=== PATIENT | male | born 1995 | race Caucasian/White ===

== ENCOUNTER → 2020-03-13 14:12 | Outpatient (BNVA) | payer BC, SELFPAY | PROVIDERS: Visit Provider Nurse Practitioner Family | DX: Z11.59 Encounter for screening for other viral diseases (principal); R05 Cough; R09.81 Nasal congestion | CPT/HCPCS: 87635 ==

== ENCOUNTER 2020-05-13 10:46 | Emergency (ER) | payer OTHER, SELFPAY ==
[2020-05-13 11:10] VITALS: BP 159/90; PULSE 98; RESP 14; TEMP 36.4; O2SAT 97; BMI 28.1
--- NOTE | 2020-05-13 11:17 | XR_ITS ---
WS: [id number] XR ankle RT min 3V* 11529 REASON FOR EXAM: Jumped off pallet and twisted ankle with swelling noted FINDINGS: Soft tissue swelling about the ankle most notably over the lateral malleolus. Normal anatomic alignment. The ankle mortise is intact. No fracture is identified. There is a very small accessory ossicle adjacent to the tip of the medial malleolus. XR/XR ankle RT min 3V* 50439 IMPRESSION: Soft tissue swelling around the ankle with no fracture or dislocation shelylie janki
[2020-05-13 11:46] VITALS: RESP 18
--- NOTE | 2020-05-13 12:06 | W.ED.EXTPRO ---
HPI - Extremity Problem General: Chief complaint: Extremity Injury, Lower Stated complaint: R FOOT INJURY Time Seen by Provider: 05/13/20 12:03 History of Present Illness: HPI Narrative: 24-year-old male patient presents to the emergency department with right ankle pain. He reports jumped off palate, approximately 5 to 6 feet rolling his right ankle. He reports pain on both sides of the ankle. States did not take anything for pain prior to arrival. Accident occurred approximately 2 hours prior to ED visit. He denies any further injury. He reports pain is localized to the right ankle only. MD Complaint: joint swelling and joint pain Onset (ago): hour(s) (2) Pain Consistency: intermittent Location: right and lower extremity Severity scale (1-10): 5 Quality: aching Radiation: other (both sides of the ankle) Relieving factors: rest Exacerbating factors: weight bearing Associated symptoms: Reports no associated symptoms; Deny chest pain, fever(s) or rash Review of Systems General: Reports: 10 or more systems reviewed and unremarkable except in HPI and below Const: Denies: fever(s), chills or diaphoresis Eyes: Denies: blurry vision or eye redness ENMT: Denies: throat pain, dental pain or disequilibrium Card: Denies: chest pain, palpitations or irregular heart rhythm Resp: Denies: dyspnea, productive cough, non-productive cough or wheezing GI: Denies: abdominal pain, nausea or vomiting : Denies: dysuria Musc: Reports: joint pain (Right ankle) and joint swelling (Right ankle); Denies: neck pain or back pain Skin/Breast: Denies: rash or pruritus Neuro: Denies: headache(s), weakness in extremities or behavioral changes Richard/Lymph: Denies: easy bruising [facility] ED PFSH: Social History Smoking and tobacco status: current every day smoker Alcohol intake: never Physical Exam Const: COMMON NORMALS: no acute distress, patient oriented x3, healthy appearing and alert GENERAL APPEARANCE: cooperative, comfortable and well hydrated HENMT: COMMON NORMALS: normocephalic, Normal external nose present and moist oral mucous membranes HEAD & SCALP: normocephalic NOSE: Normal external nose present Eye: COMMON NORMALS: Equal, round and reactive pupils present and EOMs intact bilaterally GENERAL EYE: appearance normal, both eyes and all related structures PUPIL: Yes Equal, round and reactive pupils present Neck/C-Spine: COMMON NORMALS: full ROM and no lymphadenopathy GENERAL: Yes normal visual inspection and Yes trachea midline CERVICAL SPINE: Yes cervical ROM normal Lymph: LYMPHATIC: no lymphadenopathy noted Chest: COMMONS NORMALS: normal inspection of the chest Resp: COMMON NORMALS: normal respiratory effort and clear to auscultation bilaterally AUSCULTATION: clear to auscultation bilaterally Cardio: COMMON NORMALS: regular rhythm, S1 normal heart sound present, S2 normal heart sound present and Peripheral pulses 2+ throughout RHYTHM: regular rhythm HEART SOUNDS: S1 normal heart sound present and S2 normal heart sound present PERIPHERAL PULSES: Peripheral pulses 2+ throughout GI: COMMON NORMALS: Soft to palpation and non-tender INSPECTION: Yes normal to inspection PALPATION: Yes Soft to palpation : COMMON NORMALS: Yes no CVA tenderness BLADDER/KIDNEY EXAM: Yes no CVA tenderness Back/Pelvis: COMMON NORMALS: no CVA tenderness and thoracic and lumbar spine normal to inspection Extremity: COMMON NORMALS: normal to inspection and capillary refill normal GENERAL: Yes normal exam except as noted RIGHT LOWER EXTREMITY: Yes foot & digits Right ankle: Yes inspection (With swelling medial,lateral, anterior), Yes palpation (Pain medial and lateral), Yes ROM (Pain with inversion eversion dorsiflexion and flexion, full range of motion to all digits of the right foot, right foot palpated for pain, not able to produce pain to the metatarsals or phalanges) and Yes neurovascular exam (Distally intact) Neuro: COMMON NORMALS: patient oriented x3 and no focal motor deficits SENSORIUM/ORIENTATION: Yes alert Psych: COMMON NORMALS: mental status grossly normal, Normal thought process present and cooperative ACTIVITY/MOTOR BEHAVIOR: Yes appropriate eye contact THOUGHT PROCESS: Normal thought process present Skin: COMMON NORMALS: no rashes or lesions noted and turgor normal GENERAL SKIN EXAM: no rashes or lesions noted and turgor normal Course Vital Signs: Vital signs: Vital Signs Temperature 97.6 F 05/13/20 11:10 Pulse Rate 98 05/13/20 11:10 Respiratory Rate 14 05/13/20 11:10 Blood Pressure 159/90 05/13/20 11:10 Pulse Oximetry 97 05/13/20 11:10 MDM - Extremity (Nontraumatic) Imaging Data^: Xray Ortho: Radiologist's impression: [facility] [address] [place] [address] XRay Report Signed Patient: Rinku Winston #: [id number] : 1995Acct#:[id number] Age/Sex: 24 / MADM Date: 05/13/20 Loc: ERRoom/Bed: Attending Dr: Ordering Provider/Ordering MD: Mati Hurley DO Date of Service: 05/13/20 Procedure(s): XR ankle RT min 3V* 11341 Accession Number(s): [id number] Report Number: [id number] WS: [id number] XR ankle RT min 3V* 51252 REASON FOR EXAM: Jumped off pallet and twisted ankle with swelling noted FINDINGS: Soft tissue swelling about the ankle most notably over the lateral malleolus. Normal anatomic alignment. The ankle mortise is intact. No fracture is identified. There is a very small accessory ossicle adjacent to the tip of the medial malleolus. XR/XR ankle RT min 3V* [id number] IMPRESSION: Soft tissue swelling around the ankle with no fracture or dislocation identified. Dictated By:Eddie Cope Jr, MD Signed By:Eddie Cope Jr MDSigned Date/Time:05/13/20 1204 DD/ 1201 Discharge Plan Discharge Prescriptions: No Action acetaminophen [Tylenol] 325 mg capsule 325 mg PO QID PRNRF: 0 ibuprofen 200 mg tablet 200 mg PO Q6H PRNRF: 0 Coding Level of Care Code ED Marine Engineer Cpvec for Chg Fwd Exam Comprehensive
[2020-05-13] MEDS: ibuprofen 800 mg tablet PO (12:24)
[2020-05-13 13:28] VITALS: RESP 18
== END 2020-05-13 13:29 | disposition home or self-care (01) ==
PROVIDERS: Emergency Provider Nurse Practitioner Family
DX: M25.571 Pain in right ankle and joints of right foot (principal); F17.210 Nicotine dependence, cigarettes, uncomplicated
CPT/HCPCS: 12345; 29515; 73610; 99281; 99283; E0114